=== PATIENT | male | born 1985 | race Caucasian/White ===

== ENCOUNTER 2021-05-26 17:31 | Emergency (ER) | payer OTHER ==
[2021-05-26 17:55] VITALS: TEMP 98.2; BMI 25.0
[2021-05-26 18:05] VITALS: BP 143/106; PULSE 76
== END 2021-05-26 18:26 | disposition home or self-care (01) ==
LOC: FER 17:31
DX: I10 Essential (primary) hypertension (principal)
CPT/HCPCS: 99283-25